=== PATIENT | female | born 1965 | race Caucasian/White ===

== ENCOUNTER → 2017-01-07 | Outpatient (CLI) | payer OTHER ==
[~2017-01-07] MED LIST: ASPIRIN81 MG PO; HYDROCODON-ACE1 EAC6 PO; IMDUR ER TAB 3030 MG PO; LEVEMIR FL100 UNIT/1 SQ; LIPITOR TAB 2020 MG PO; LISINOPRIL5 MG PO; METFORMIN HCL1000 M1 PO; METOPROLOL TART25 MG PO; NEURONTIN 100100 MG PO; NITROGLYCERIN0.4 MG SL; NOVOLOG FL100 UNIT/1 SQ; PROTONIX 40 MG40 M1 PO; SYMBICORT 80-10.2 GM INH; TYLENOL 325MG325 MG PO; VENTOLIN HFA 66.7 GM INH
== END ==
LOC: LAB 12:16
DX: E11.9 Type 2 diabetes mellitus without complications (principal)
CPT/HCPCS: 36415; 80061

== ENCOUNTER → 2017-03-07 | Outpatient (CLI) | payer OTHER | LOC: US 03-06 08:30 | DX: R10.9 Unspecified abdominal pain (principal); K76.0 Fatty (change of) liver, not elsewhere classified | CPT/HCPCS: 76700 ==

== ENCOUNTER → 2017-04-16 | Outpatient (CLI) | payer OTHER ==
[2017-04-16 13:49] LABS: BUN/CREATININE RATIO 22 (0-10)
[2017-04-16 17:49] LABS: HEMOGLOBIN 13.5 gm/dl (12.3-15.3); RED BLOOD COUNT 4.63 M/UL (4.00-5.10); WHITE BLOOD COUNT 7.4 K/UL (4.5-11.0)
== END ==
LOC: LAB 12:04
PROVIDERS: Nurse Practitioner Psychiatric/Mental Health
DX: D16.20 Benign neoplasm of long bones of unspecified lower limb (principal); E11.9 Type 2 diabetes mellitus without complications; E55.9 Vitamin D deficiency, unspecified; I10 Essential (primary) hypertension; Q78.6 Multiple congenital exostoses
CPT/HCPCS: 36415; 73552; 73590; 80053; 80061; 82043; 83036; 85025

== ENCOUNTER 2017-04-20 10:33 | Emergency (ER) | payer OTHER ==
[2017-04-20 11:45] LABS: HEMOGLOBIN 12.9 gm/dl (12.3-15.3); RED BLOOD COUNT 4.46 M/UL (4.00-5.10); WHITE BLOOD COUNT 6.8 K/UL (4.5-11.0)
[2017-04-20 12:04] LABS: BUN/CREATININE RATIO 18 (0-10)
[2017-06-17] MEDS ORDERED: LIPITOR TAB 2020 MG PO (18:00)
[2017-06-17] MEDS ORDERED: LISINOPRIL5 MG PO (18:02)
[2017-06-17] MEDS ORDERED: NEURONTIN 100100 MG PO (18:04)
[2017-06-17] MEDS ORDERED: METOPROLOL TART25 MG PO (18:07)
[2017-06-17] MEDS ORDERED: PROTONIX 40 MG40 M1 PO (18:07)
[2017-06-17] MEDS ORDERED: HYDROCODON-ACE1 EAC6 PO (18:09)
[2017-06-17] MEDS ORDERED: METFORMIN HCL1000 M1 PO (18:10)
[2017-06-17] MEDS ORDERED: ASPIRIN81 MG PO (18:11)
[2017-06-17] MEDS ORDERED: LEVEMIR FL100 UNIT/1 SQ (18:12)
[2017-06-17] MEDS ORDERED: NOVOLOG FL100 UNIT/1 SQ (18:13)
[2017-06-17] MEDS ORDERED: VENTOLIN HFA 66.7 GM INH (20:52)
[2017-06-17] MEDS ORDERED: SYMBICORT 80-10.2 GM INH (20:52)
[2017-06-18] MEDS ORDERED: TYLENOL 325MG325 MG PO (19:48)
[2017-06-18] MEDS ORDERED: IMDUR ER TAB 3030 MG PO (19:50)
[2017-06-18] MEDS ORDERED: NITROGLYCERIN0.4 MG SL (19:50)
== END 2017-04-20 14:35 | disposition home or self-care (01) ==
LOC: ER1 10:33
PROVIDERS: Emergency Medicine
DX: K08.89 Other specified disorders of teeth and supporting structures (principal); E11.9 Type 2 diabetes mellitus without complications; Z88.1 Allergy status to other antibiotic agents; Z79.4 Long term (current) use of insulin
CPT/HCPCS: 36415; 80053; 85025; 96374; 96375; 99283; J1200; J2930; J7030; J7050

== ENCOUNTER → 2017-05-06 | Outpatient (CLI) | payer OTHER | LOC: RAD 08:29 | DX: M25.531 Pain in right wrist (principal); M79.631 Pain in right forearm | CPT/HCPCS: 73090; 73110 ==

== ENCOUNTER → 2021-02-15 | Outpatient (CLI) | payer OTHER ==
[~2021-02-15] MED LIST changes: +BASAGLAR K100 UNIT/1 SC; +DITROPAN 5 MG TA5 MG PO; +GABAPENTIN100 MG PO; +REQUIP3 MG PO
== END ==
LOC: MAMO 08:00
DX: Z12.31 Encounter for screening mammogram for malignant neoplasm of breast (principal)
CPT/HCPCS: 77063; 77067

== ENCOUNTER 2021-07-03 14:01 | Emergency (ER) | payer OTHER | END 2021-07-03 17:18 | disposition home or self-care (01) | LOC: ER1 14:01 | DX: Z23 Encounter for immunization (principal); U07.1 COVID-19; J45.909 Unspecified asthma, uncomplicated; I10 Essential (primary) hypertension; E11.9 Type 2 diabetes mellitus without complications; F17.210 Nicotine dependence, cigarettes, uncomplicated | CPT/HCPCS: 99284; M0243 ==

== ENCOUNTER 2022-01-10 14:17 | Emergency (ER) | payer OTHER ==
[2022-01-10 14:53] LABS: HEMOGLOBIN 15.3 gm/dl (12.3-15.3); WHITE BLOOD COUNT 10.7 K/UL (4.5-11.0)
[2022-01-10 15:25] LABS: BUN/CREATININE RATIO 19 (0-10)
[2022-01-10] MEDS ORDERED: ZOFRAN 4 MG TAB4 MG PO (17:08)
[2022-01-10] MEDS ORDERED: IBUPROFEN600 MG PO (17:08)
== END 2022-01-10 17:15 | disposition home or self-care (01) ==
LOC: ER1 14:17
PROVIDERS: Physician Assistant Medical
DX: R51.9 Headache, unspecified (principal); R11.2 Nausea with vomiting, unspecified; I25.2 Old myocardial infarction; I10 Essential (primary) hypertension; J45.909 Unspecified asthma, uncomplicated; Z88.8 Allergy status to other drugs, medicaments and biological substances
CPT/HCPCS: 70450; 80053; 81001; 82550; 82553; 84439; 84443; 84484; 85025; 93005; 96374; 99284; J2405